=== PATIENT | male | born 1985 | race Caucasian/White ===

== ENCOUNTER 2019-01-15 11:57 | Day surgery (SDC) | payer OTHER ==
[2019-01-13 11:38] VITALS: BMI 23.0
[2019-01-15] MEDS ORDERED: PROPOFOL 20 ML ONE ×2 (13:57→13:58)
[2019-01-15] MEDS ORDERED: MIDAZOLAM HCL 2 MG/2 ML SINGLE DOSE VIAL ONE (13:57)
[2019-01-15] MEDS ORDERED: LIDOCAINE HCL 1%, 10 MG/ML (20ML VIAL) ONE (13:58)
[2019-01-15] MEDS ORDERED: LIDOCAINE HCL 1%, 10 MG/ML (20ML VIAL) INF ONE (14:27)
[2019-01-15] MEDS ORDERED: KETOROLAC TROMETHAMINE 30 MG/1 ML VIAL ONE (14:58)
[2019-01-15] MEDS ORDERED: ONDANSETRON 4 MG/2 ML VIAL ONE (14:58)
[2019-01-15] MEDS ORDERED: DEXAMETHASONE SOD PHOSPHATE 4 MG/1 ML VIAL ONE (14:58)
[2019-01-15 15:30] VITALS: TEMP 97.8
[2019-01-15 15:42] VITALS: BP 121/69; PULSE 62
--- NOTE | 2019-01-17 14:55 | PATH ---
Surgical Pathology Report Patient Name: ENOC MONTENEGRO Med. Rec. #: [id number] /Age/Gender: 1985 (Age: 33) / M Account: [id number] Location: [facility] Taken: 01/15/2019 Received: 01/15/2019 Reported: 01/17/2019 Physicians: Holland Adam M.D. Specimen(s) Received MASS RIGHT HAND Clinical History Right hand mass Final Diagnosis HAND, RIGHT, MASS, EXCISION: LOBULAR CAPILLARY HEMANGIOMA (PYOGENIC GRANULOMA), ULCERATED. Electronically Signed Khadijah Quesada M.D. Gross Description Received in formalin labeled "mass right hand," is a 1.4 x 0.4 cm cardoso, elliptical, unoriented portion of skin excised to a depth of 0.4 cm. The epidermal surface displays a 0.7 x 0.5 cm cardoso-brown, crusted lesion. The base is inked blue and the specimen is serially sectioned. The specimen is entirely submitted in 2 cassettes as follows: 1-undesignated tips; 2-central portion of specimen with lesion. /01/16/2019 saudi01/16/2019
--- NOTE | 2019-01-21 13:06 | OP ---
DATE OF OPERATION: 01/15/2019 PREOPERATIVE DIAGNOSIS: Right thumb mass. POSTOPERATIVE DIAGNOSIS: Right thumb mass. OPERATIVE PROCEDURE: Right thumb mass excision. SURGEON: Holland Iniguez MD ANESTHESIA: General. COMPLICATIONS: None. ESTIMATED BLOOD LOSS: Minimal. INDICATIONS FOR PROCEDURE: The patient is a 33-year-old male with the above finding, indicated for operative treatment. Risks, benefits, and alternatives were discussed with the patient at length. Proper informed consent was obtained. PROCEDURE: After proper identification of the patient and correct operative site, the patient was brought to the operating room and placed supine on the operating table with prominences well padded. Right upper extremity was prepped and draped in the usual sterile fashion. A well-padded tourniquet was placed over the sterile prep. Esmarch bandage used to exsanguinate right upper extremity. Tourniquet was inflated to 250 mmHg. The mass was visualized as a likely pyogenic granuloma on the radial aspect of the MP joint. The mass was ellipsed out with adjacent skin down through the deep subcutaneous tissues at base of the mass. There was no further mass noted, but this area was electrocauterized with bipolar electrocautery to prevent recurrence. The skin was then sewn in a [id number] fashion with 5-0 fast-absorbing plain gut sutures. Sterile dressings were applied. Patient reversed from anesthesia and brought to recovery room in stable condition. He tolerated procedure well. HOLLAND INIGUEZ M.D. RAMÍREZ/[id number]
== END 2019-01-15 16:25 | disposition home or self-care (01) ==
LOC: FASU 11:57
PROVIDERS: ATTEND Orthopaedic Surgery Hand Surgery
PROC: 0JBJ0ZZ Excision of Right Hand Subcutaneous Tissue and Fascia, Open Approach (ICD-10-PCS; principal; 2019-01-15 13:30)
DX: L98.0 Pyogenic granuloma (principal)
CPT/HCPCS: 88305-TC

== ENCOUNTER 2019-02-12 07:56 | Emergency (ER) | payer OTHER ==
[2019-02-12 07:59] VITALS: BP 139/90; PULSE 77; TEMP 98.4; BMI 23.0
[2019-02-12] MEDS ORDERED: KETOROLAC TROMETHAMINE 30 MG/1 ML VIAL IM ONE (08:06)
--- NOTE | 2019-02-12 08:12 | PDOC ---
History of Present Illness - General Chief Complaint: Pain, Acute Stated Complaint: LEFT SIDE PAIN Time Seen by Provider: 02/12/19 07:59 - History of Present Illness Initial Comments: 02/12/19 08:06 33 M with h/o MS presenting to ED with L side and back pain after falling. Pt states that he was at work when he slipped on ice. Pt landed onto his left side. Denies headstrike/LOC. Was able to get up on his own afterwards. Now reports pain in his L shoulder and ribcage, as well as his lower back and L hip. Pt reports history of diskectomy in lumbar spine (does not recall level). Denies any weakness/numbness in either leg. No incontinence or saddle anesthesia. Pt states he took half of his home oxycodone with some relief. Past History - Past Medical History Allergies/Adverse Reactions: Allergies Allergy/AdvReac Type Severity Reaction Status Date / Time No Known Allergies Allergy Verified 02/12/19 07:57 Home Medications: Ambulatory Orders No Home Medications 0 dose .ROUTE UTDICT 02/27/13 Valacyclovir HCl [Valtrex -] 1,000 mg PO BID 10 Days tablet 09/19/14 Amitriptyline HCl 100 mg PO HS 01/13/19 Cholecalciferol (Vitamin D3) [Vitamin D3] 5,000 unit PO DAILY 01/13/19 Modafinil 150 mg PO DAILY 01/13/19 oxyCODONE HCL [Roxybond] 15 mg PO Q6H 01/13/19 Naproxen 500 mg PO BID PRN #14 tablet 02/12/19 Anemia: No Asthma: No Cancer: No Cardiac Disorders: No CVA: No COPD: No CHF: No Dementia: No Diabetes: No GI Disorders: No Disorders: No HTN: No Hypercholesterolemia: No Liver Disease: No Seizures: No Thyroid Disease: No Other medical history: MS - Surgical History Abdominal Surgery: No Appendectomy: No Cardiac Surgery: No Cholecystectomy: No Lung Surgery: No Neurologic Surgery: No Orthopedic Surgery: Yes (SPINAL SX 2018) - Immunization History Immunization Up to Date: Yes - Psycho Social/Smoking Cessation Hx Smoking Status: No Smoking History: Never smoked Have you smoked in the past 12 months: No Number of Cigarettes Smoked Daily: 1 'Breaking Loose' booklet given: 09/19/14 Hx Alcohol Use: Yes (OCASIONAL) Drug/Substance Use Hx: No Substance Use Type: Alcohol, Marijuana, Prescribed Hx Substance Use Treatment: No Review of Systems - Review of Systems Comments:: 02/12/19 08:09 "GENERAL/CONSTITUTIONAL: No fever or chills. No weakness. HEAD, EYES, EARS, NOSE AND THROAT: No change in vision. No ear pain or discharge. No sore throat. CARDIOVASCULAR: No chest pain, no shortness of breath, no loss of consciousness RESPIRATORY: No cough, wheezing, or hemoptysis. GASTROINTESTINAL: No nausea, vomiting, diarrhea or constipation. GENITOURINARY: No dysuria, frequency, or change in urination. MUSCULOSKELETAL: + L ribcage, L shoulder, Lower back, and L hip pain SKIN: No rash NEUROLOGIC: No vertigo, no change in strength/sensation. ENDOCRINE: No increased thirst. No abnormal weight change. HEMATOLOGIC/LYMPHATIC: No anemia, easy bleeding, or history of blood clots. ALLERGIC/IMMUNOLOGIC: No hives or skin allergy. *Physical Exam - Vital Signs Last Vital Signs Temp Pulse Resp BP Pulse Ox 98.4 F 77 16 139/90 100 02/12/19 07:56 02/12/19 07:56 02/12/19 07:56 02/12/19 07:56 02/12/19 07:56 - Physical Exam 02/12/19 08:09 "GENERAL: Awake, alert, and fully oriented, in no acute distress. HEAD: No signs of trauma EYES: PERRLA, EOMI, sclera anicteric, conjunctiva clear ENT: Auricles normal inspection, hearing grossly normal, nares patent, oropharynx clear without exudates. Moist mucosa NECK: Nontender, no stepoffs, Normal ROM, supple, no lymphadenopathy, JVD, or masses LUNGS: Breath sounds equal, clear to auscultation bilaterally. No wheezes, and no crackles HEART: Regular rate and rhythm, normal S1 and S2, no murmurs, rubs or gallops ABDOMEN: Soft, nontender, normoactive bowel sounds. No guarding, no rebound. No masses EXTREMITIES: + ROM L shoulder limited 2/2 pain, no deformity, no bony tenderness , + TTP L anterior ribcage, no crepitus, + TTP L thigh BACK: + L paraspinal lumbar TTP, no midline TTP, no stepoffs NEUROLOGICAL: Cranial nerves II through XII intact. 5/5 strength and sensation in all extremities, Normal speech, normal gait, normal cerebellar function SKIN: Warm, Dry, normal turgor, no rashes or lesions noted. ED Treatment Course - RADIOLOGY Radiology Studies Ordered: Category Date Time Status CHEST PA & LAT [RAD] Stat Radiology 02/12/19 08:05 Ordered HIP & PELVIS-LEFT [RAD] Stat Radiology 02/12/19 08:04 Ordered RIBS-LEFT SIDE [RAD] Stat Radiology 02/12/19 08:04 Ordered SHOULDER-LEFT [RAD] Stat Radiology 02/12/19 08:04 Ordered SPINE-LUMBAR SACRAL [RAD] Stat Radiology 02/12/19 08:04 Ordered Medical Decision Making - Medical Decision Making 02/12/19 08:11 33 M with mechanical fall at work, now with L shoulder and ribcage pain, L lower back pain, and L hip pain. Pt ambulatory in ED, no evidence of cord compression/cauda equina on exam. - XR L shoulder, ribs, lumbar spine, L hip - Pain control 02/12/19 09:04 XRs negative Pt reassessed - pain now well controlled Pt ambulatory in ED without difficulty Pt is well appearing, with normal vitals. Clinically stable for DC at this time. I discussed the physical exam findings, ancillary test results and final diagnoses with the patient. I answered all of the patient's questions. The patient was satisfied with the care received and felt comfortable with the discharge plan and treatment plan. The patient agrees to follow up with the primary care physician within 24-72 hours. Discharge - Discharge Information Problems reviewed: Yes Clinical Impression/Diagnosis: Fall, Shoulder pain, Rib pain, Back pain Condition: Stable Disposition: HOME - Additional Discharge Information Prescriptions: Naproxen 500 mg PO BID PRN #14 tablet PRN Reason: Pain - Follow up/Referral Referrals: Hector Garibay MD [Staff Physician] - - Patient Discharge Instructions Patient Printed Discharge Instructions: DI for Low Back Pain, DI for Rib Contusion, DI for Shoulder Pain Additional Instructions: Take naproxen as prescribed to treat your pain. Follow up with an orthopedist within 1 week for further evaluation of your injuries. Even though your X rays showed no fractures or dislocations, you may need a MRI to rule out any other injuries. If you experience worsening back pain, weakness or numbness in your leg, difficulty walking, chest pain, shortness of breath, or any other concerning symptoms, return to the ER immediately. - Post Discharge Activity Work/Back to School Note: Back to Work
[2019-02-12] MEDS ORDERED: KETOROLAC TROMETHAMINE 30 MG/1 ML VIAL ONE (08:45)
== END 2019-02-12 09:13 | disposition home or self-care (01) ==
LOC: FER 07:56
PROC: 3E0233Z Introduction of Anti-inflammatory into Muscle, Percutaneous Approach (ICD-10-PCS; principal; 2019-02-12)
DX: R07.81 Pleurodynia (principal); M54.5 Low back pain; M25.512 Pain in left shoulder; W00.0XXA Fall on same level due to ice and snow, initial encounter; Y93.89 Activity, other specified; Y92.410 Unspecified street and highway as the place of occurrence of the external cause; Z72.0 Tobacco use; G35 Multiple sclerosis
CPT/HCPCS: 71101-TC-LT-FY; 72100-TC-FY; 73030-TC-LT-FY; 73523-TC-FY; 99282-25

== ENCOUNTER 2019-11-05 09:08 | Day surgery (SDC) | payer OTHER ==
[2019-10-29 15:33] VITALS: BMI 23.0
[2019-11-05] MEDS ORDERED: MIDAZOLAM HCL 2 MG/2 ML SINGLE DOSE VIAL ONE ×2 (10:14→10:39)
[2019-11-05] MEDS ORDERED: ROPIVACAINE HCL 0.5% 30ML VIAL ONE (10:14)
[2019-11-05] MEDS ORDERED: EPINEPHrine 1:1,000 1 MG/1 ML - 30ML VIAL (INJECTION) ONE (10:25)
[2019-11-05] MEDS ORDERED: PROPOFOL 20 ML ONE ×2 (10:39→11:52)
[2019-11-05] MEDS ORDERED: SUCCINYLCHOLINE CHLORIDE 200 MG/10 ML SYRINGE ONE (11:52)
[2019-11-05] MEDS ORDERED: ONDANSETRON 4 MG/2 ML VIAL ONE (11:54)
[2019-11-05] MEDS ORDERED: DEXAMETHASONE SOD PHOSPHATE 4 MG/1 ML VIAL ONE (11:54)
[2019-11-05] MEDS ORDERED: ceFAZolin SODIUM 1 GM VIAL ONE (11:54)
[2019-11-05] MEDS ORDERED: oxyCODONE HCL 5 MG TABLET PO PRN ×2 (12:31)
[2019-11-05] MEDS ORDERED: ONDANSETRON 4 MG/2 ML VIAL IVPUSH PRN (12:31)
[2019-11-05] MEDS ORDERED: LACTATED RINGERS SOLUTION 1,000 ML IV SCH (12:45)
--- NOTE | 2019-11-05 13:45 | OP ---
DATE OF OPERATION: 11/05/2019 PREOPERATIVE DIAGNOSIS: Left shoulder possible labral tear. POSTOPERATIVE DIAGNOSIS: Left shoulder anterior labral tear. OPERATIVE PROCEDURE: Left shoulder operative arthroscopy with repair of anterior labral tear. SURGEON: Travis Iniguez MD TRANSACTION ADVISORY SERVICES MANAGER: MICHAEL Orellana ANESTHESIA: Regional. COMPLICATIONS: None. ESTIMATED BLOOD LOSS: Minimal. INDICATIONS FOR PROCEDURE: The patient is a 34-year-old male with the above finding, indicated for the operative procedure. The risks, benefits and alternatives were discussed with patient at length. Proper informed consent was obtained. PROCEDURE: After proper identification of the patient and the corrective operative site, patient was given a regional anesthetic and then brought to the operating room in stable condition. Placed onto the operative table in a beach chair position with all points of contact well padded and in-line cervical position maintained throughout the procedure. Left upper extremity was prepped and draped in the usual sterile fashion. Arthroscopy was performed through posterior and anterior portals. All portals were made with a skin incision only and blunt dissection down to the joint capsule. Glenohumeral joint was observed and found to be free of articular defects. Rotator cuff was intact without any fraying. Biceps tendon was intact including the extraarticular portion. There was no significant tenosynovitis of the biceps tendon. A tear of the anterior labrum at approximately 9 o'clock position and slightly inferior was noted. This was significantly frayed and detached from the humerus. Sublabral foramen was also noted superior to this and the biceps anchor was intact. The anterior inferior labrum and posterior labrum were all intact. With motion of the shoulder it was clearly irritating the anterior labral tear and there was erythema around this. Subscapularis was intact. At this point the labral tear was debrided and found to be unstable and low enough on the axis of the shoulder where I did not think that repairing this would cause significant dysfunction. Therefore, a repair was performed as this appeared to be the source of his pain. This was performed by placing an Arthrex FiberStick suture around the labral tear at its base adjacent to the bone and securing it to the glenoid anterior edge at the anterior articular margin with an Arthrex PushLock anchor. This provided secure stable repair of the tear. Shoulder was taken through range of motion. There was no further instability of repair. Arthroscope was placed into the subacromial space and there was no evidence of tear in the subacromial space. The bursa appeared normal. Shoulder was taken through range of motion and there was no loss of range of motion. Wounds were irrigated and repaired with 5-0 nylon sutures. Sterile dressings and a sling were placed. Patient was reversed from anesthesia, brought to recovery in stable condition. Gianfranco Ricketts, the technical assistant, was integral throughout this procedure. He was necessary to position the shoulder in the proper position as well as hold the arthroscope during repair of the labrum. This could not have been performed without a skilled operative technical assistant. TRAVIS INIGUEZ M.D. [id number]
[2019-11-05 15:13] VITALS: BP 114/74; PULSE 59; TEMP 97.6
== END 2019-11-05 15:05 | disposition home or self-care (01) ==
LOC: FASU 09:08
PROVIDERS: ATTEND Orthopaedic Surgery Hand Surgery
PROC: 0RQK4ZZ Repair Left Shoulder Joint, Percutaneous Endoscopic Approach (ICD-10-PCS; principal; 2019-11-05 12:10)
DX: S43.491A Other sprain of right shoulder joint, initial encounter (principal); X58.XXXA Exposure to other specified factors, initial encounter; Y93.9 Activity, unspecified; Y92.9 Unspecified place or not applicable
CPT/HCPCS: 94760